=== PATIENT | female | born 1955 | race Caucasian/White ===

== ENCOUNTER 2017-01-11 22:01 | Emergency (ER) | payer BC ==
[~2017-01-11 22:01] MED LIST: ALEVE220 M3 PO; ALLERGY SHOTS; ASPIRIN325 M3 PO; ATORVASTATIN CA20 M1 PO; CENTRUM SILVER1 EAC6 PO; CETIRIZINE HCL10 M1 PO; CORTIZONE TP; CYCLOBENZAPRINE10 M1 PO; DYMISTA NASAL S23 G1; ESTRADIOL1 M1 PO; MIRALAX17 G2 PO; MOBIC15 M2 PO; OMEPRAZOLE20 M3 PO; PAZEO2.5 ML OP; TYLENOL EXTRA500 M1 PO; TYLENOL325 M2 PO; ULTRAM50 M1 PO; VITAMIN C500 M3 PO; VITAMIN D2000 UNIT PO; [UNRECOGNIZED DRUG - CODE] PO
== END 2017-01-11 23:30 ==
LOC: EDMED 22:01
PROC: 0HQFXZZ Repair Right Hand Skin, External Approach (ICD-10-PCS; principal; 2017-01-11)
DX: S61.011A Laceration without foreign body of right thumb without damage to nail, initial encounter (principal); W26.8XXA Contact with other sharp object(s), not elsewhere classified, initial encounter; Y92.009 Unspecified place in unspecified non-institutional (private) residence as the place of occurrence of the external cause